=== PATIENT | female | born 1960 | race Caucasian/White ===

== ENCOUNTER 2019-06-24 20:13 | Emergency (ER) | payer OTHER ==
[~2019-06-24] VITALS: Ht 160 cm; Wt 58.3 kg
[2019-06-24 20:23] VITALS: BP 128/79
[2019-06-25 14:35] LABS: MEAN CORPUSCULAR HGB CONC 33.7 g/dL (32.4-35.8); MEAN CORPUSCULAR VOLUME 92.1 fL (80-100); RED BLOOD COUNT 4.41 x10^6/uL (3.82-5.3)
[2019-06-25 14:36] LABS: MEAN PLATELET VOLUME 9.2 fL (7.4-10.4); PLATELET COUNT 265 x10^3/uL (130-400); RED CELL DISTRIBUTION WIDTH 12.6 % (9.6-15.2)
[2019-06-25 14:37] LABS: LYMPHOCYTES % (AUTO) 22 % (22-44); MD NO; MONOCYTES % (AUTO) 7 % (2-9); NEUTROPHILS % (AUTO) 66 % (42-75)
[2019-06-25 14:38] LABS: BASOPHILS # (AUTO) 0.05 x10^3/uL (0-0.1); BASOPHILS % (AUTO) 1 % (0-1); EOSINOPHILS # (AUTO) 0.33 x10^3/uL (0-0.4); EOSINOPHILS % (AUTO) 4 % (1-7); NEUTROPHILS # (AUTO) 5.05 x10^3/uL (1.8-6.8)
[2019-06-25 15:54] LABS: ALBUMIN 3.6 g/dL (3.4-5.0); ANION GAP 8 mmol/L (5-15); CALCIUM 8.5 mg/dL (8.5-10.1); CHLORIDE 108 mmol/L (98-107); CREATININE 0.71 mg/dL (0.55-1.02); TROPONIN I < 0.015 ng/mL (0.000-0.045)
== END 2019-06-25 00:44 ==
LOC: ED 23:29
DX: R55 Syncope and collapse (principal); I10 Essential (primary) hypertension; R11.0 Nausea; R40.4 Transient alteration of awareness
CPT/HCPCS: 36415; 80048; 80307; 82040; 84484; 85025; 93005; 99284